=== PATIENT | female | born 1995 | race Caucasian/White ===

== ENCOUNTER → 2017-04-29 15:35 | Outpatient (CLI) | payer OTHER, SELFPAY ==
--- NOTE | 2017-04-29 15:42 | XR_ITS ---
XR knee RT 3V Ordering Physician: Jessie Fuchs Patient Age: 21 years: Female HISTORY: ITS.REASON: RT KNEE PAIN Surgery 4 years ago. Knee pain TECHNIQUE: 3 views of the right knee COMPARISON :2 views left knee 05/28/2013 FINDINGS 2 screws enter anteriorly at the tibial tubercle . Likely reflecting a tibial transfer procedure utilized to better outline the patella. However the patella appears to be abnormal laterally positioned and displaced on the frontal projection. A sunrise view recommended to better evaluate for such, along with orthopedic follow-up. On the lateral film note a relatively small volumes a small sized patella with a borderline to mild patella cherelle considering the knee is an partial flexion IMPRESSION: The the patella appears laterally displaced and subluxed on frontal projection. Recommend sunrise view to further evaluate relationships here.. Also suggest orthopedic follow-up 2 screws entering anteriorly at the tibia may reflect previous tibial tubercle transfer or a patellar tendon transfer clinical correlation required BorderlinePatella cherelle
== END ==
PROVIDERS: PCP Nurse Practitioner Family; Visit Provider Nurse Practitioner Family
DX: M25.561 Pain in right knee (principal)
CPT/HCPCS: 73562

== ENCOUNTER → 2021-11-12 12:32 | Outpatient (CLI) | payer MEDICAID, SELFPAY ==
--- NOTE | 2021-11-12 12:41 | XR_ITS ---
FINAL REPORT CLINICAL HISTORY: cyst rt wrist FINDINGS: 3 views of the right wrist were obtained. There is no acute fracture or dislocation. The joint spaces are intact. There is no soft tissue abnormality. IMPRESSION: No acute abnormality. Reviewed, Interpreted and Dictated by Ron Taylor MD Transcribed by Joaquin Valdivia Authenticated and [facility]
== END ==
LOC: RAD 12:38
PROVIDERS: PCP Nurse Practitioner Family; Visit Provider Orthopaedic Surgery
DX: M67.431 Ganglion, right wrist (principal); M25.531 Pain in right wrist
CPT/HCPCS: 73110